=== PATIENT | male | born 1995 | race African-American/Black ===

== ENCOUNTER 2024-03-23 16:27 | Inpatient (IN) | payer SELFPAY ==
[2024-03-23 16:48] VITALS: BP 134/69; PULSE 85; RESP 17; TEMP 37.1; O2SAT 93; BMI 24.9
--- NOTE | 2024-03-23 16:48 | ED.C_ITS ---
HPI - Psych 2 General: Chief Complaint: Psychiatric Symptoms Stated Complaint: MHE Time Seen by Provider: 03/23/24 16:44 Source: patient Mode of arrival: ambulatory Limitations: no limitations History of Present Illness: 28-year-old male who states he has been out of his psychiatric meds and has been having suicidal ideations. He states he has a plan to get his rifle and shoot himself in the head. He has had previous admissions the past he denies any worsening or improving factors he is calm and cooperative here. Associated symptoms: Reports depression and suicidal ideation Related Data Allergies Allergy/AdvReac Type Severity Reaction Status Date / Time No Known Allergies Allergy Verified 03/23/24 16:51 Review of Systems 2 Const: Denies: fever(s), chills, body aches or change in appetite ENMT: Denies: throat pain or dental pain Card: Denies: chest pain Resp: Denies: dyspnea GI: Denies: abdominal pain, nausea, vomiting or diarrhea Musc: Denies: neck pain or back pain Skin/Breast: Denies: rash Neuro: Denies: headache(s) Psych: Reports: depression and suicidal ideation Physical Exam 2 Const: COMMON NORMALS: no acute distress, patient oriented x3 and healthy appearing HENMT: COMMON NORMALS: normocephalic and atraumatic HEAD & SCALP: n ormocephalic and atraumatic Eye: COMMON NORMALS: Equal, round and reactive pupils present and EOMs intact bilaterally PUPIL: Yes Equal, round and reactive pupils present Neck/C-Spine: COMMON NORMALS: full ROM and supple Chest: COMMONS NORMALS: normal inspection of the chest Resp: COMMON NORMALS: normal respiratory effort Cardio: COMMON NORMALS: regular rate, regular rhythm and No murmurs present (Cardio) RATE: regular rate RHYTHM: regular rhythm Extremity: COMMON NORMALS: normal to inspection and full ROM Neuro: COMMON NORMALS: patient oriented x3, moves all extremities and no focal motor deficits Psych: COMMON NORMALS: Normal thought process present and cooperative MOOD & AFFECT: Yes depressed mood THOUGHT PROCESS: Normal thought process present THOUGHT CONTENT: Yes Suicidality present Skin: COMMON NORMALS: no rashes or lesions noted and no wounds GENERAL SKIN EXAM: no rashes or lesions noted Course 2 Vital Signs: Vital signs: Vital Signs Temperature 98.7 F 03/23/24 16:48 Pulse Rate 85 03/23/24 16:48 Respiratory Rate 17 03/23/24 16:48 Blood Pressure 134/69 03/23/24 16:48 Pulse Oximetry 93 03/23/24 16:48 Oxygen Delivery Me thod Room Air 03/23/24 16:48 MDM - Psych Medical Decision Making Patient presents for suicidal ideations he is placed on a 96-hour hold he is medically cleared I spoke to psychiatrist will admit. Medical Records I reviewed the patient's medical records. Lab Data I reviewed the patient's lab results. 03/23/24 16:47 03/23/24 16:47 Laboratory Results WBC 8.89 10^3/uL (3.29-11.43) 03/23/24 16:47 RBC 4.54 10^6/uL (3.85-5.65) 03/23/24 16:47 Hgb 14.70 g/dL (11.27-16.99) 03/23/24 16:47 Hct 44.0 % (37-53) 03/23/24 16:47 MCV 96.9 fl (82-101) 03/23/24 16:47 MCH 32.4 pg (27-33) 03/23/24 16:47 MCHC 33.4 g/dL (30-55) 03/23/24 16:47 RDW 12.9 % (12.1-15.1) 03/23/24 16:47 Plt Count 279 10^3/cmm (157-399) 03/23/24 16:47 MPV 9.3 fL (7.4-10.4) 03/23/24 16:47 Neut % (Auto) 45.3 % 03/23/24 16:47 Lymph % (Auto) 44.8 % 03/23/24 16:47 [place] % (Auto) 6.3 % 03/23/24 16:47 Eos % (Auto) 2.9 % 03/23/24 16:47 Baso % (Auto) 0.6 % 03/23/24 16:47 Neut # (Auto) 4.03 10^3/uL (1.8-7.7) 03/23/24 16:47 Lymph # (Auto) 4.0 10^3/uL (0.8-4.8) 03/23/24 16:47 [place] # (Auto) 0.6 10^3/uL (0.2-0.9) 03/23/24 16:47 Eos # (Auto) 0.3 10^3/uL (0.0-0.8) 03/23/24 16:47 Baso # (Auto) 0.1 10^3/uL (0.0-0.1) 03/23/24 16:47 Nucleated RBC % (auto) 0 % 03/23/24 16:47 Nucleated RBCs # 0.0 /100WBC 03/23/24 16:47 Sodium 143 mmol/L (136-145) 03/23/24 16:47 Potassium 3.8 mmol/L (3.5-5.1) 03/23/24 16:47 Chloride 106 mmol/L (98-107) 03/23/24 16:47 Carbon Dioxide 26 mmol/L (22-29) 03/23/24 16:47 Anion Gap 14.8 (5-19) 03/23/24 16:47 BUN 12 mg/dL (6-20) 03/23/24 16:47 Creatinine 0.9 mg/dL (0.7-1.2) 03/23/24 16:47 GFR Calculation 120.7 mL/min (90-130) 03/23/24 16:47 Glucose 99 mg/dL (65-115) 03/23/24 16:47 Calculated Osmolality 296 mOsm/kg (285-295) H 03/23/24 16:47 Calcium 9.1 mg/dL (8.5-10.5) 03/23/24 16:47 Total Bilirubin 0.2 mg/dL (0.15-1.2) 03/23/24 16:47 AST 16 U/L (0-40) 03/23/24 16:47 ALT 19 U/L (0-41) 03/23/24 16:47 Alkaline Phosphatase 94 U/L (40-130) 03/23/24 16:47 Total Protein 6.6 g/dL (6.6-8.7) 03/23/24 16:47 Albumin 4.2 g/dL (3.5-5.2) 03/23/24 16:47 Globulin 2.4 g/dL (1.3-4.6) 03/23/24 16:47 Salicylates < 0.3 mg/dL (3-10) L 03/23/24 16:47 Acetaminophen < 5.0 ug/mL (10-30) L 03/23/24 16:47 Ethyl Alcohol < 10 mg/dL (0-10) 03/23/24 16:47 No radiology studies performed this visit Discharge Plan Discharge Condition: Stable Coding Level of Care Code ED Crocodile Farmer for Curtis Chapa
[2024-03-23 17:13] LABS: Basophils # 0.1 10^3/uL (0.0-0.1); Basophils % 0.6 %; Eosinophils # 0.3 10^3/uL (0.0-0.8); Eosinophils % 2.9 %; Lymphocytes % 44.8 %; Mean Corpuscular HGB Conc 33.4 g/dL (30-55); Mean Corpuscular Hemoglobin 32.4 pg (27-33); Mean Corpuscular Volume 96.9 fl (82-101); Mean Platelet Volume 9.3 fL (7.4-10.4); Monocytes # 0.6 10^3/uL (0.2-0.9); Monocytes % 6.3 %; Neutrophils # 4.03 10^3/uL (1.8-7.7); Neutrophils % 45.3 %; Nucleated Red Blood Cells % 0 %; Platelet Count 279 10^3/cmm (157-399); Red Blood Count 4.54 10^6/uL (3.85-5.65); Red Cell Distribution Width 12.9 % (12.1-15.1); White Blood Count 8.89 10^3/uL (3.29-11.43)
--- NOTE | 2024-03-23 17:15 | PC.NURSE ---
96 hr hold reviewed with patient @0751 with assistance of [facility] [employer] Analyst Developer Jay. All education reviewed. No verbalized concerns made by patient in regards to 96 hr process. Patient just verbalized wanting to make sure that at the time of his discharge, he would have a ride back home 2 hrs away. Patient copy of 96 hr rights left with patient. Soda provided by HS to patient. No other needs or concerns verbalized @this time.
[2024-03-23 17:36] LABS: Alanine Aminotransferase 19 U/L (0-41); Albumin Level 4.2 g/dL (3.5-5.2); Alkaline Phosphatase 94 U/L (40-130); Anion Gap 14.8 (5-19); Aspartate Amino Transferase 16 U/L (0-40); Blood Urea Nitrogen 12 mg/dL (6-20); Calcium 9.1 mg/dL (8.5-10.5); Carbon Dioxide 26 mmol/L (22-29); Chloride 106 mmol/L (98-107); Creatinine Clr Calc Pharmacy 152.9237; Globulin 2.4 g/dL (1.3-4.6); Glomerular Filtration Rate 120.7 mL/min (90-130); Glucose 99 mg/dL (65-115); Osmolality Calculated 296 mOsm/kg (285-295); Potassium 3.8 mmol/L (3.5-5.1); Sodium 143 mmol/L (136-145); Total Bilirubin 0.2 mg/dL (0.15-1.2); Total Protein 6.6 g/dL (6.6-8.7)
[2024-03-23 17:37] LABS: Acetaminophen < 5.0 ug/mL (10-30); Alcohol Level < 10 mg/dL (0-10); Salicylate < 0.3 mg/dL (3-10)
[2024-03-23 18:27] LABS: Amphetamines Screen Urine Positive (Negative); Barbiturates Screen Urine Negative (Negative); Benzodiazepines Screen Urine Negative (Negative); Cocaine Screen Urine Negative (Negative); Opiate Screen Urine Negative (Negative); PCP Screen Urine Negative (Negative); THC Screen Urine Negative (Negative)
[2024-03-23 20:36] VITALS: BP 125/75; PULSE 67; RESP 16; O2SAT 96
[2024-03-23 22:00] VITALS: BP 125/86; PULSE 77; RESP 19; TEMP 36.8; O2SAT 99
[2024-03-23 22:04] VITALS: BP 125/86; PULSE 77; RESP 19; TEMP 36.8; O2SAT 99
[2024-03-24 06:00] VITALS: BP 114/75; PULSE 74; RESP 16; TEMP 36.6; O2SAT 98
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
--- NOTE | 2024-03-24 09:52 | PC.NURSE ---
IN BED RESTING AROUSES TO VOICE. DENIES PAIN, PT STATES I'M HERE SO I CAN GET BACK ON MY MEDICATIONS AND GET BACK TO WORK. DENIES SI/HI AND AVH AT THIS TIME. PT IS COOPERATIVE AND CALM WITH ASSESSMENT. ALL QUESTIONS ANSWERED AND SUPPORT VOICED.
[2024-03-24 14:00] VITALS: BP 120/81; PULSE 82; RESP 16; TEMP 37.2; O2SAT 97
--- NOTE | 2024-03-24 16:25 | PC.NURSE ---
THIS RN CONTACTED [facility] IN [facility] TO CONFIRM MEDICATIONS. PT HAS ACTIVE SCIPTS FOR TRAZODONE,LAMICTAL, ABILIFY AND CLONIDINE. NOTIFIED DR. CHEW IN PERSON AND NEW ORDERS WERE RECEIVED TO START THE FOLLOWING: TRAZODONE 150 MG PO AT BEDTIME, ABILIFY 15 MG PO DAILY, CLONIDINE 0.1 MG PO DAILY AND LAMICTAL 25 MG PO BID. PT EDUCATED ON NEW ORDERS. VERBALIZED UNDERSTANDING. ALL QUESTIONS ANSWERED AND SUPPORT WAS VOICED.
[2024-03-24] MEDS: ARIPiprazole 10 mg Tablet 15 MG PO (17:40)
[2024-03-24] MEDS: lamoTRIgine 25 mg Tablet PO (17:40)
--- NOTE | 2024-03-24 21:23 | PC.NURSE ---
Refused trazodone: Patient refused evening trazodone.
[2024-03-24 21:31] VITALS: BP 126/75; PULSE 72; RESP 18; TEMP 36.6; O2SAT 97
[2024-03-25 06:00] VITALS: BP 120/73; PULSE 78; RESP 16; TEMP 37.1; O2SAT 98
[2024-03-25 08:48] VITALS: BP 120/73
[2024-03-25] MEDS: ARIPiprazole 10 mg Tablet 15 MG PO (08:48)
[2024-03-25] MEDS: cloNIDine 0.1 mg Tablet PO (08:48)
[2024-03-25] MEDS: lamoTRIgine 25 mg Tablet PO ×2 (08:48→17:44)
--- NOTE | 2024-03-25 09:40 | PC.NURSE ---
ON BENCH SPEAKING TO NURSE COMPLETING ASSESSMENT. PT STATES HE IS READY TO DISCHARGE AND GET BACK TO HIS JOB AND KIDS. DENIES PAIN. DENIES SI/HI AND AVH AT THIS TIME. PT APPEARS IN GOOD SPIRITS AND IS INSIGHTFUL TO ADMISSION AND WHAT HE NEEDS TO DO TO STAY MENTALLY HEALTHY. RATES ANXIETY AND DEPRESSION 0/10. ALL QUESTIONS ANSWERED AND SUPPORT VOCIED.
[2024-03-25 14:00] VITALS: BP 122/75; PULSE 86; RESP 16; TEMP 37; O2SAT 98
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
[2024-03-25] MEDS: trazodone 150 mg Tablet PO (20:16)
[2024-03-25 21:41] VITALS: BP 112/68; PULSE 72; RESP 16; O2SAT 95
[2024-03-26 06:00] VITALS: BP 129/75; PULSE 89; RESP 76; TEMP 36.9; O2SAT 98
[2024-03-26 08:33] VITALS: BP 129/75
[2024-03-26] MEDS: cloNIDine 0.1 mg Tablet PO (08:33)
[2024-03-26] MEDS: ARIPiprazole 10 mg Tablet 15 MG PO (08:33)
[2024-03-26] MEDS: lamoTRIgine 25 mg Tablet PO (08:34)
--- NOTE | 2024-03-26 09:12 | P.NPUDS_ITS ---
Diagnoses at Discharge Discharge Diagnosis (1) History of bipolar disorder: Status: Acute (2) Cannabis use disorder: Status: Acute (3) Suicidal ideation: Status: Acute (4) Depression: Status: Acute Reason for Visit Reason for Visit: MHE Involuntary Hold Information 96 Hour Hold: 96 Hour Involuntary Admission: Yes 96 Hour Hold Ending Date: 03/29/24 96 Hour Hold Ending Time: 16:40 Mental Status Exam MSE Comments: This is a well-nourished, well-developed -Guamanian male, in hospital scrubs, with adequate grooming, and eye contact. No abnormal movements except for mild psychomotor retardation. Cooperative with exam mild distress. Speech was slightly decreased rate and volume. Mood described as all right; affect slightly subdued. Thought process, linear. Thought content: patient denied any suicidal or homicidal ideation, there were no delusions reported or noted, patient denied any auditory or visual hallucinations. The patient denies any current thoughts of self-harm or harm to others. He denies feeling paranoid or experiencing hallucinations. He describes his mood as perfect and pretty good . He mentioned that he said out of anger and spite that he would blow his face off with a hunting rifle, but he doesn't own any guns and didn't mean it. Attention, concentration, and memory appear intact but were not formally tested. He is alert and oriented x 3. Insight and judgment and impulse control are limited. Discharge Data Studies Completed and Pending: Laboratory Results WBC 8.89 10^3/uL (3.2 9-11.43) 03/23/24 16:47 RBC 4.54 10^6/uL (3.8 5-5.65) 03/23/24 16:47 Hgb 14.70 g/dL (11.27 -16.99) 03/23/24 16:47 Hct 44.0 % (37-53) 03/23/24 16:47 MCV 96.9 fl (82-101) 03/23/24 16:47 MCH 32.4 pg (27-33) 03/23/24 16:47 MCHC 33.4 g/dL (30-55) 03/23/24 16:47 RDW 12.9 % (12.1-15.1 ) 03/23/24 16:47 Plt Count 279 10^3/cmm (157 -399) 03/23/24 16:47 MPV 9.3 fL (7.4-10.4) 03/23/24 16:47 Neut % (Auto) 45.3 % 03/23/24 16:47 Lymph % (Auto) 44.8 % 03/23/24 16:47 [place] % (Auto) 6.3 % 03/23/24 16:47 Eos % (Auto) 2.9 % 03/23/24 16:47 Baso % (Auto) 0.6 % 03/23/24 16:47 Neut # (Auto) 4.03 10^3/uL (1.8 -7.7) 03/23/24 16:47 Lymph # (Auto) 4.0 10^3/uL (0.8- 4.8) 03/23/24 16:47 [place] # (Auto) 0.6 10^3/uL (0.2- 0.9) 03/23/24 16:47 Eos # (Auto) 0.3 10^3/uL (0.0- 0.8) 03/23/24 16:47 Baso # (Auto) 0.1 10^3/uL (0.0- 0.1) 03/23/24 16:47 Nucleated RBC % (a uto) 0 % 03/23/24 16:47 Nucleated RBCs # 0.0 /100WBC 03/23/24 16:47 Sodium 143 mmol/L (136-1 45) 03/23/24 16:47 Potassium 3.8 mmol/L (3.5-5 .1) 03/23/24 16:47 Chloride 106 mmol/L (98-10 7) 03/23/24 16:47 Carbon Dioxide 26 mmol/L (22-29) 03/23/24 16:47 Anion Gap 14.8 (5-19) 03/23/24 16:47 BUN 12 mg/dL (6-20) 03/23/24 16:47 Creatinine 0.9 mg/dL (0.7-1. 2) 03/23/24 16:47 GFR Calculation 120.7 mL/min (90- 130) 03/23/24 16:47 Glucose 99 mg/dL (65-115) 03/23/24 16:47 Calculated Osmolal ity 296 mOsm/kg (285- 295) H 03/23/24 16:47 Calcium 9.1 mg/dL (8.5-10 .5) 03/23/24 16:47 Total Bilirubin 0.2 mg/dL (0.15-1 .2) 03/23/24 16:47 AST 16 U/L (0-40) 03/23/24 16:47 ALT 19 U/L (0-41) 03/23/24 16:47 Alkaline Phosphata se 94 U/L (40-130) 03/23/24 16:47 Total Protein 6.6 g/dL (6.6-8.7 ) 03/23/24 16:47 Albumin 4.2 g/dL (3.5-5.2 ) 03/23/24 16:47 Globulin 2.4 g/dL (1.3-4.6 ) 03/23/24 16:47 Salicylates < 0.3 mg/dL (3-10 ) L 03/23/24 16:47 Urine Opiates Scre en Negative ng/mL (N egative) 03/23/24 17:25 Acetaminophen < 5.0 ug/mL (10-3 0) L 03/23/24 16:47 Ur Barbiturates Sc reen Negative ng/mL (N egative) 03/23/24 17:25 Ur Phencyclidine S crn Negative ng/mL (N egative) 03/23/24 17:25 Ur Amphetamines Sc reen Positive ng/mL (N egative) H 03/23/24 17:25 U Benzodiazepines Scrn Negative ng/mL (N egative) 03/23/24 17:25 Urine Cocaine Scre en Negative ng/mL (N egative) 03/23/24 17:25 U Marijuana (THC) Screen Negative ng/mL (N egative) 03/23/24 17:25 Ethyl Alcohol < 10 mg/dL (0-10) 03/23/24 16:47 Vitals: Last Vital Signs Temp 98.5 F 03/26/24 06:00 Pulse 89 03/26/24 06:00 Resp 76 H 03/26/24 06:00 BP 129/75 03/26/24 08:33 Pulse Ox 98 03/26/24 06:00 O2 Del Method Room Air 03/26/24 06:00 Discharge Plan Discharge Patient Disposition: Home Condition: Stable Prescriptions: Continued clonidine HCl 0.1 mg Tablet 0.1 mg PO DAILY 30 Days Qty: 30 1RF Lamictal 25 mg Tablet 25 mg PO BID 30 Days Qty: 60 1RF trazodone 150 mg tablet 150 mg PO BEDTIME 30 Days Qty: 30 1RF aripiprazole 15 mg tablet 15 mg PO DAILY 30 Days Qty: 30 1RF Discharge Orders: Discharge Order (Routine); Ordered 03/26/24 Ordered By: Mauro Munoz Referrals: Nereida Echeverria-[facility] Donya [Other] Discharge Diet: Regular Discharge Activity: Resume usual activity Patient Instructions: Opioid Safety Discharge Attestations NPU Time Spent in Discharge Care*: less than 30 min Specific Discharge Activities: Specific discharge activities: educating patient, discussing with child welfare caseworker/social workers/dc planners, documenting/other paperwork and evaluating patient/reviewing data Coding Level of Care Code Acute Code for g Fwd Diagnoses History of bipolar disorder Z86.59 Cannabis use disorder F12.90 Suicidal ideation R45.851 Depression F32.A
[2024-03-26 09:14] VITALS: BP 129/75; PULSE 89; RESP 16; TEMP 36.9; O2SAT 98
== END 2024-03-26 13:10 | disposition home or self-care (01) | DRG 881 ==
LOC: ER 18:15 → NP 19:56
PROVIDERS: Admitting Provider Psychiatry & Neurology Psychiatry; Emergency Provider Emergency Medicine; Visit Provider Psychiatry & Neurology Psychiatry
DX: F32.A Depression, unspecified (principal); R45.851 Suicidal ideations; F12.90 Cannabis use, unspecified, uncomplicated; F17.210 Nicotine dependence, cigarettes, uncomplicated; Z86.59 Personal history of other mental and behavioral disorders; Z91.141 Patient's other noncompliance with medication regimen due to financial hardship
CPT/HCPCS: 36415; 80053; 80306; 80307; 85025; 97150; 97165; 99285